=== PATIENT | male | born 1985 | race Caucasian/White ===

== ENCOUNTER 2021-11-05 13:55 | Emergency (ER) | payer OTHER ==
[~2021-11-05] VITALS: Ht 175.3 cm; Wt 100.0 kg
[2021-11-05 14:47] VITALS: BP 146/91
--- NOTE | 2021-11-05 16:07 | PHYS DOC ---
Past History Additional Past Medical Histor: PRK (RANDOLPH LARES APRN) Past Surgical History: Tonsillectomy, Other Additional Past Surgical Histo: vasectomy (RANDOLPH LARES APRN) Alcohol Use: None (RANDOLPH ALRES APRN) Adult General Chief Complaint Chief Complaint: LACERATION/AVULSION HPI HPI Patient is a 36-year-old male who presents to the emergency department complaining of a forehead laceration. Patient said he stumbled and fell forward bumping his head against his fish tank causing a laceration to his prior to arrival. Patient reports his last tetanus immunization was less than 5 years ago. Denies loss of consciousness, dizziness, visual disturbances, syncopal or near syncopal episodes, denies headache. Reports that there is pain at the site of the laceration. Patient reports he covered it and came to the emergency department for evaluation. Patient denies other physical complaints or physical concerns. (RANDOLPH LARES APRN) Review of Systems Review of Systems 14 body systems of review of systems have been reviewed. See HPI for pertinent positives and negative responses, otherwise all other systems are negative, nonpertinent or noncontributory. Constitutional: Negative except as outlined in HPI above. Skin: Negative except as outlined in HPI above. Eyes: Negative except as outlined in HPI above. HENT: Negative except as outlined in HPI above. Respiratory: Negative except as outlined in HPI above. Cardiovascular: Negative except as outlined in HPI above. GI: Negative except as outlined in HPI above. : Negative except as outlined in HPI above. Musculoskeletal: Negative except as outlined in HPI above. Integument: Negative except as outlined in HPI above. Neurologic: Negative except as outlined in HPI above. Endocrine: Negative except as outlined in HPI above. Lymphatic: Negative except as outlined in HPI above. Psychiatric: Negative except as outlined in HPI above. (RANDOLPH LARES APRN) Allergies Allergies Allergies Coded Allergies Type Severity Reaction Last Updated Verified gabapentin Allergy Unknown 11/05/21 Yes (RANDOLPH LARES APRN) Physical Exam Physical Exam Constitutional: Well developed, well nourished, no acute distress, non-toxic appearance. 36-year-old male in no apparent distress. HENT: Normocephalic, no skull depressions appreciated, patient does have 4 cm linear lack laceration to the forehead, no bleeding appreciated, partial skin thickness laceration. No crepitus appreciated, minimal contusion. No raccoon eyes, no battles sign, no other abnormalities of the face or scalp appreciated. Eyes: Conjunctiva normal, no discharge. Satisfactory 6 cardinal eye movements. Neck: Normal range of motion, no stridor. No nuchal rigidity, no meningismus signs. No midline spinal tenderness. Cardiovascular: No cyanosis appreciated, distal cap refill less than 2 seconds. Lungs & Thorax: Patient is in no respiratory distress, no audible adventitious lung sounds appreciated. Abdomen: Nontender, no abnormalities noted. Skin: Warm, dry, no erythema, no rash. Back: No tenderness, no deformities. Extremities: No tenderness, no cyanosis, no clubbing, ROM intact, no edema. Neurologic: Alert and oriented X 3, normal motor function, normal sensory function, no focal deficits noted. Psychologic: Affect normal, judgement normal, mood normal. (RANDOLPH LARES APRN) Current Patient Data Vital Signs Vital Signs Date Time Temp Pulse Resp B/P (MAP) Pulse Ox O2 Delivery O2 Flow Rate FiO2 11/05/21 14:47 90 18 146/91 (109) 99 (RANDOLPH LARES APRN) EKG EKG [] (RANDOLPH LARES APRN) Radiology/Procedures Radiology/Procedures [] (RANDOLPH LARES APRN) Heart Score C/O Chest Pain: No Risk Factors: Risk Factors: DM, Current or recent (<one month) smoker, HTN, HLP, family history of CAD, obesity. Risk Scores: Risk Factors: DM, Current or recent (<one month) smoker, HTN, HLP, family history of CAD, obesity. (RANDOLPH LARES APRN) Course & Med Decision Making Course & Med Decision Making Pertinent Labs and Imaging studies reviewed. (See chart for details) 36-year-old male, vital signs reviewed, resents emerged from concerning for head laceration. Patient's tetanus immunization is up-to-date, tetanus/Tdap is not indicated for today's visit. Patient examined by ED attending physician Dr. Geller who recommended Dermabond closure repair. See laceration repair note. Discussed with patient home care of glued lacerations, ongoing care of laceration after glue is removed, strict follow-up with primary care for ongoing management of laceration, return to ER precautions and concerns, patient gave verbal understanding of and is amenable to ED discharge planning. Discussed with the patient all findings and diagnostic testing as well as the need to follow-up with their primary care provider for further evaluation and treatment or return to the ED if any new or worsening symptoms. Strict return precautions were also discussed at length, the patient voiced understanding and agreement with the discharge planning. The patient was nontoxic in appearance, in no apparent distress, and hemodynamically stable at the time of disposition. (RANDOLPH LARES APRN) Dragon Disclaimer Dragon Disclaimer This electronic medical record was generated, in whole or in part, using a voice recognition dictation system. (RANDOLPH LARES APRN) Dragon Disclaimer I was the Attending physician on the above date of service of this patient. This patient was evaluated, examined, treated, and dispositioned from the emergency department by the mid-level practitioner. I saw patient and evaluated laceration that was superficial in nature, this closed repair options that included lenin versus sutures versus glue and joint decision made with patient and significant other to glue Electronically signed, Alli Geller DO (ALLI GELLER DO) Laceration Repair Lac Repair Indication: Forehead laceration Time: 1545 Confirmed: Patient, procedure, side, and site correct. Consent: Patient, has given verbal consent. Description/repair Procedure: The patient was placed in the appropriate position and anesthesia around the not indicated for this laceration repair. The area was then cleansed with chlorhexidine soap and normal saline. The laceration was closed with Dermabond skin glue. The wound area was then left open to air. Complexity: Single layer. Post procedure exam: Circulation, motor, sensory examination intact, bleeding controlled. Total repaired wound length: 4 cm. Other Items: The patient tolerated the procedure well. Complications: There were no complications. Performed by: Randolph Nash, [employer] Supervision: Dr. Geller was present for consult regarding the critical aspects of the procedure including closure and post procedure exam. Total time: 5 minutes. (RANDOLPH LARES APRN) Departure Departure: Impression: Primary Impression: Forehead laceration Additional Impression: Forehead contusion Disposition: HOME / SELF CARE / HOMELESS Condition: GOOD Referrals: PCP,NO (PCP) Patient Instructions: Tissue Adhesive Wound Care Additional Instructions: You were seen today in the emergency department after bumping your head on your fish tank and causing a laceration to your forehead. This was repaired with Dermabond glue. As we discussed it will start peeling off after about 5 days. Keep ice packs to your forehead 30 minutes on and 30 minutes off while awake for the next 4872 hours to help prevent swelling. You may use Tylenol and/or Motrin for head discomfort or laceration discomfort. As we discussed to help minimize scarring, after the glue has removed after the 5-day period, please apply SPF 30 or greater sunblock to the laceration site 2-3 times a day every day for the next 6 months. Follow with your primary care doctor for ongoing wound care management. Return to the emergency department for worsening symptoms or other concerns. Discussed with the patient all findings and diagnostic testing as well as the need to follow-up with their primary care provider for further evaluation and treatment or return to the ED if any new or worsening symptoms. Strict return precautions were also discussed at length, the patient voiced understanding and agreement with the discharge planning. The patient was non toxic in appearance, in no apparent distress, and hemodynamically stable at the time of disposition. Problem Qualifiers Primary Impression: Forehead laceration Encounter type: initial encounter Qualified Codes: S01.81XA - Laceration without foreign body of other part of head, initial encounter Additional Impression: Forehead contusion Encounter type: initial encounter Qualified Codes: S00.83XA - Contusion of other part of head, initial encounter RANDOLPH LARES APRN Nov 05, 2021 16:07 ALLI GELLER DO Nov 08, 2021 07:02
== END 2021-11-05 16:11 | disposition home or self-care (01) ==
LOC: ER 13:55
DX: S01.81XA Laceration without foreign body of other part of head, initial encounter (principal); Z88.8 Allergy status to other drugs, medicaments and biological substances; W01.0XXA Fall on same level from slipping, tripping and stumbling without subsequent striking against object, initial encounter; Y93.89 Activity, other specified; Y92.89 Other specified places as the place of occurrence of the external cause; Y99.8 Other external cause status
CPT/HCPCS: 12013; 99282